=== PATIENT | male | born 1980 | race Caucasian/White ===

== ENCOUNTER → 2016-05-28 | Outpatient (CLI) | payer OTHER | LOC: BRMIMAGING 11:17 | DX: M79.641 Pain in right hand (principal); M79.89 Other specified soft tissue disorders | CPT/HCPCS: 73130-PO ==

== ENCOUNTER → 2016-08-17 | Outpatient (CLI) | payer OTHER | LOC: BRMIMAGING 11:54 | DX: S69.92XA Unspecified injury of left wrist, hand and finger(s), initial encounter (principal) | CPT/HCPCS: 73140-PO ==